=== PATIENT | male | born 1955 | race African-American/Black ===

== ENCOUNTER → 2017-01-29 | Day surgery (SDC) | payer BC ==
[~2017-01-29] VITALS: Ht 167.6 cm; Wt 104.8 kg
[~2017-01-29] MED LIST: ACETAMINOPHEN 500 MG CPLT PO PRN; ALBU6.7H INH; ATROPINE SULFATE 1% OPHT SOLN 2 ML BTL ONE; BALANCED SALT SOLN OPHT IRRIG 15 ML BTL ONE; CHLORHEXIDINE GLUCONATE 2 % 1 PACK (2 CLOTHS) TOPICAL PRN; DEXAMETHASONE SOD PHOS 4 MG/ML VIAL ONE; DO NOT ADM ANY ANTICOAGULANT DRUGS PRN; EPINEPHrine HCL (1:1000) 1 MG/ML VIAL ONE; GLIP10TA6 PO; INSULIN HUMAN REGULAR 1,000 UNITS/10 ML VIAL SQ PRN; LACTATED RINGER'S 1000 ML IV PRN; LISI-515 PO; METF500T PO; METOPROLOL TARTRATE 25 MG TAB PO PRN; ONDANSETRON HCL 4 MG/2 ML VIAL IM PRN; ONDANSETRON HCL 4 MG/2 ML VIAL IV PUSH ONE; PHENYLEPHRINE HCL 2.5% OPTH SOLN 2 ML BTL EACH EYE SCH; POVIDONE IODINE 5% (ANTISEPSIS KIT) 4 APPLICATIONS EACH NARE PRN; PROPOFOL 200 MG/20 ML AMP IV ONE; SIMV40TA PO; SODIUM CHLORID 0.9% 500 ML IV PRN; STERILE WATER FOR INJ 20 ML VIAL ONE; TOBRAMYCIN/DEXAMETHASONE OPTH OINT 3.5 GM TUBE ONE; TRIAMCINOLONE ACETONIDE/PF 40 MG/ML OPTH VIAL ONE; ceFAZolin INJ 1,000 MG VIAL ONE; ePHEDrine/NS 25 MG/5 ML SYR IV ONE; oxyCODONE/ACETAMINOPHEN 5 MG/325 MG TAB PO PRN
[2017-01-29] MEDS: ATROPINE SULFATE 1% OPHT SOLN 5 ML BTL EACH EYE SCH ×2 (06:30→07:25)
[2017-01-29 07:03] VITALS: BP 156/99; PULSE 70; RESP 18; TEMP 98.1; O2SAT 98
[2017-01-29] MEDS: CYCLOPENTOLATE HCL 1% OPHT SOLN 2 ML BTL EACH EYE SCH ×2 (07:10→07:25)
[2017-01-29] MEDS: TROPICAMIDE 1% OPHT SOLN 15 ML BTL EACH EYE SCH ×2 (07:10→07:25)
[2017-01-29 07:18] LABS: AUTOMATED NEUTROPHIL # 3.7 TH/MM3 (1.8-7.7); BASOPHIL % 0.7 % (0.0-2.0); EOSINOPHIL # 0.1 TH/MM3 (0-0.4); HEMATOCRIT 40.1 % (39.0-51.0); HEMO FLAGS DIFF FINAL; LYMPH % 30.6 % (9.0-44.0); MEAN CELL VOLUME 89.3 FL (80.0-100.0); MEAN CORPUSCULAR HEMOGLOBIN 29.3 PG (27.0-34.0); MEAN CORPUSCULAR HGB CONC 32.8 % (32.0-36.0); NEUT % 56.7 % (16.0-70.0); PLATELET COUNT 232 TH/MM3 (150-450); RED BLOOD COUNT 4.49 MIL/MM3 (4.50-5.90); RED CELL DISTRIBUTION WIDTH 13.4 % (11.6-17.2); WHITE BLOOD COUNT 6.5 TH/MM3 (4.0-11.0)
[2017-01-29 11:00] VITALS: BP 160/97; PULSE 88; RESP 18; TEMP 97.5; O2SAT 98
--- NOTE | 2017-01-29 14:17 | EKG ---
Date Performed: 01/29/2017 Time Performed: 06:46:21 PTAGE: 61 years EKG: Sinus rhythm VOLTAGE CRITERIA FOR LVH NONSPECIFIC T-WAVE ABNORMALITY NONSPECIFIC LATERAL ST ELEVATION, MOST CONSI STENT WITH EARLY REPOLARIZATION CHANGE ABNORMAL ECG Compared to PREVIOUS TRACING , there has been some flattening of the T waves in lead aVL but no other change. PREVIOUS TRACIN07/14/2000 06.52 DOCTOR: Tricia Palomares Interpretating Date/Time 01/29/2017 14:15:59
--- NOTE | 2017-01-30 10:48 | MP ---
cc: ADEN SINGH M.D. DATE OF SURGERY 01/29/2017 PREOPERATIVE DIAGNOSIS Severe proliferative diabetic retinopathy with preretinal and vitreous hemorrhage OU. POSTOPERATIVE DIAGNOSIS Severe proliferative diabetic retinopathy with preretinal and vitreous hemorrhage OU. PROCEDURE Trans pars plana vitrectomy with endolaser and indirect laser fill-in PRP, air-fluid exchange, left eye. SURGEON Dr. Aden Singh ANESTHESIA General laryngeal mask anesthesia INDICATIONS Mr. Rubio is a 61-year-old gentleman with a history of proliferative diabetic retinopathy OU. He had a vitreous hemorrhage in his right eye which was resolving with observation and then developed vitreous hemorrhage in his left eye. He has very severe anxiety and I suggested we do the vitrectomy and laser in the left eye in the operating room as usual, but also have his right eye dilated and performed laser indirect fill in PRP while he was still under general anesthesia. He wished to proceed. Informed consent was obtained. No guarantee was made as to visual outcome. PROCEDURE He was brought to [facility] operating room one and placed on the operating table. Appropriate anesthesia monitoring devices were applied and he was placed under general anesthesia using a laryngeal mask. The left eye was identified as the vitrectomy site and then prepped and draped in the usual sterile fashion. A lid speculum was placed. A time-out was called with the surgical team agreeing to the surgical site and planned procedure. The microscope was brought around and adjusted using the John 23-gauge vitrectomy system. The trocar cannulas were placed 3-1/2 mm posterior to the limbus after first displacing the conjunctiva. The first one was placed at approximately the 3 o'clock position and verified to be in the posterior chamber. An infusion cannula was affixed to it and turned on. Two additional trocar cannulas were placed at 10 and 2 o'clock. Using the flat contact lens for visualization, the eye was entered with the [employer]-rural health consultant light pipe and vitrectomy cutter and anterior core and partial peripheral vitrectomy was done using this lens. Also, the epicenters were approached and segmented with the vitrectomy cutter and also the horizontal scissors. The posterior hyaloid and fibrovascular proliferation was then removed with a small stub of dense non-tractional regressed neovascularization left along the inferior temporal arcade. A minimal amount of bleeding occurred and it was controlled with increasing the intraocular pressure. Next, using the biome, the rest of the peripheral vitreous was removed and then endolaser photocoagulation was performed in areas that were not reached easily with the endolaser photocoagulation were treated with the laser indirect ophthalmoscope and scleral depression. A total of 1187 laser spots were placed in all with the power that varied between 250 and 300 milliwatts in 0.1-second exposure. No retinal breaks were found. Using the soft tipped linear extrusion needle and biome wide angle viewing system, an air-fluid exchange was performed. Plugs were placed back in the cannulas and the cannulas were removed one by one with tamponade of the site with a cotton swab and diathermy to the overlying conjunctival wound. Once cannulas were removed, the eye was formed with good pressure and no visible air leaks. Atropine drops were placed on the cornea followed by subconjunctival actions of Ancef 125 mg in half cc and Decadron 2 mg in half cc. The lid speculum was removed and the patient was undraped. TobraDex ointment was placed on the cornea and then the left eye was patched and shielded. Next, attention was turned to the right eye and using the laser indirect delivery system, fill in PRP was placed in areas that had previously been untreated. A total of 869 laser spots were placed with a power of 300 milliwatts and 0.15-second exposure. The LMA was then removed as the patient was awakened and he was returned to recovery in good condition laying on his right side. When awake and alert, he will be asked to assume a face down position. MD DAMARI Melgar/OLIMPIA /9:55 AM /10:40 AM
== END | disposition home or self-care (01) ==
LOC: HSDC 06:08
PROVIDERS: ATTEND Ophthalmology
DX: E11.3593 Type 2 diabetes mellitus with proliferative diabetic retinopathy without macular edema, bilateral (principal); H43.13 Vitreous hemorrhage, bilateral; Z79.4 Long term (current) use of insulin
CPT/HCPCS: 00145; 66990; 67025; 67040; 85025; 93005; J0171; J0690; J1100; J2405; J3010; J7120; J3300

== ENCOUNTER 2018-03-18 06:39 | Inpatient (IN) ==
[2018-03-18] MEDS ORDERED: Tropicamide 1% Opth Drops 15 ML Bottle ONE (07:28)
[2018-03-18] MEDS ORDERED: Phenylephrine 2.5% Opth Drops 2 ML Bottle ONE (07:28)
[2018-03-18] MEDS ORDERED: Atropine 1% Opth Drops 5 ML Bottle ONE (07:29)
[2018-03-18] MEDS ORDERED: Cyclopentolate 1% Opth Drops 2 ML Bottle ONE (07:29)
[2018-03-18] MEDS ORDERED: Sodium Chlor 0.9% Inj 0 ML ONE (09:38)
[2018-03-30] MEDS ORDERED: Vancomycin Inj 1,000 MG in Sodium Chlor 0.9% Inj 250 ML IV.SIG SCH ×2 (08:00→09:00)
[2018-03-30] MEDS ORDERED: ceFAZolin 2 GM Premix Inj 2 GM/50 ML PIGGYBACK IV.SIG SCH (08:00)
[2018-03-30] MEDS ORDERED: Metoprolol Tartrate 25 MG Tablet PO SCH (08:00)
[2018-03-30] MEDS ORDERED: Chlorhexidine 4% Topical 120 APPLIC/120 ML Bottle TOPICAL SCH ×2 (08:00→08:45)
[2018-03-30] MEDS ORDERED: Sodium Chlor 0.9% Inj 500 ML IV.SIG SCH (08:00)
[2018-03-30] MEDS ORDERED: Chlorhexidine Gluconate 2% 1 Pack (2 Cloths) TOPICAL SCH (08:00)
[2018-03-30] MEDS ORDERED: Sodium Chlor 0.9% Inj 250 ML ONE (08:25)
[2018-03-30] MEDS ORDERED: Bupivacaine/Epinephrine PF Inj 0.25% 10 ML Vial ONE (08:46)
[2018-03-30] MEDS ORDERED: Betamethasone Sod Phos/Acetate Inj 30 MG/5 ML Vial IM ONE (08:46)
[2018-03-30] MEDS ORDERED: Gelatin Size 100 Topical Foam ONE (08:47)
[2018-03-30] MEDS ORDERED: Succinylcholine Inj 100 MG/5 ML Syringe IV.PUSH ONE (12:00)
[2018-03-30] MEDS ORDERED: Lidocaine PF 1% Inj 5 ML Syringe INFILTRATN ONE (12:00)
[2018-03-30] MEDS ORDERED: Phenylephrine/NS 1000 MCG/10ML Syringe IV.PUSH ONE (12:00)
[2018-03-30] MEDS ORDERED: Morphine Inj 4 MG/ML Vial IV.PUSH PRN (14:18)
[2018-03-30] MEDS ORDERED: Bisacodyl 10 MG Supp RECTAL PRN (14:18)
[2018-03-30] MEDS ORDERED: Post-op Orders (for Pharmacy) OTHER STA (14:18)
--- NOTE | 2018-03-30 14:26 | P.OP ---
Preoperative Diagnosis: Spondylolisthesis L4-5, grade 1+. Foraminal disc herniation left L4-5, extruded. Lumbar spinal stenosis. Left L4 radiculopathy Postoperative Diagnosis: Same Date of procedure: 03/30/18 Procedure: Lumbar laminectomy to the left L4, L5 with left subtotal facet resection L4-5 and resection extruded foraminal disc herniation. Posterior spinal fusion, lateral transverse process technique, L4-5. Post lateral interbody fusion, L4-5. Placement of interbody cage, L4-5, from the left. Posterior spinal segmental instrumentation. Bone grafting of the lumbar spine Anesthesia: GETA Surgeon: Drake Mckenzie MD Software Project Lead: Salma Voss PA-C Operation and Findings: EBL: 200 ml NOTE: Salma Voss PA-C was present for the entire surgical procedure as my airline pilot/first officer. In my medical opinion her skill and care was necessary for proper management of this patient INDICATIONS: This patient is a 62-year-old male with severe left leg pain with weakness. Investigative studies showed evidence of a large extruded foraminal disc herniation at L4-5 to the left with evidence of a very unstable L4-5 spondylolisthesis with kyphotic features and forward tilting across this level and collapse of the disc space. He presents for surgical treatment. INSTRUMENTATION: Spinenet screws. Spine wave staxx cage PROCEDURE: The patient brought to the operating room and anesthetized the supine position. The patient positioned prone on the Markel frame on the Dylan table. All pressure points are protected. The back was scrubbed with alcohol followed by Hibiclens followed by ChloraPrep and draped sterilely and antibiotics were given within a routine time window. A timeout was done. Lateral radiographic images used to identify the proper level for the procedure. Compared care for the preoperative studies. Skin markings were made anticipating surgical treatment. A left paramedian incision was made. The lamina and facet joint was exposed. We used a dilating retractor which was positioned over this region. The microscope was rolled into the field for visualization. A high-speed bur was used to take the lamina down and doing a subtotal facet resection. The exiting and crossing nerve roots were completely decompressed. There was a very large extruded disc herniation to the left of midline extending out the foramen with severe compression upon the exiting L4 nerve root. This was resected. A total discectomy was accomplished. The disc space was prepared. All cartilaginous material from the disc space was removed. A combination of demineralized bone matrix and Nucel stem cells were mixed together on the back table.. These were injected into the disc space. The cage was then placed according to pilot can router's recommendation and deployed. Position was satisfactory. Additional bone graft was placed into the disc space. The outer edge of the facet joint was identified and prepared. Under fluoroscopic images, a bur was used to gain entrance into the pedicle followed by placement of a blunt probe, an awl and placement of proper length screws. Each screw was charged with electric current there are no abnormal potentials registered in either lower extremity. A proper length alyson was fitted and attached and tightened according to pilot can router's recommendation. The wound was irrigated copiously. Bone grafting was placed along the lateral gutter in the region of the transverse process across this level. This was closed in layers with #1 Vicryl, 2-0 Vicryl and running intradermal 3-0 Vicryl followed by Steri-Strips and benzoin. On the contralateral side a separate exposure was made. The outer edge of the facet joints were identified. A bur was used to gain entrance into the pedicle followed by placement of a probe and proper length screws. Each screw was charged with electric current and no abnormal potentials registered in either lower extremity. The wound was irrigated copiously. Bone graft placed along the transverse process across this level. It was closed in layers using #1 Vicryl, 2-0 Vicryl and running intradermal 3-0 Vicryl followed by Steri-Strips and benzoin. Intraoperative radiographs were obtained. No complication was appreciated. The patient had a sterile dressing applied. The patient was awakened and taken to recovery room in satisfactory condition. FINDINGS: There was a high-grade stenosis in the foramen to the left at L4-5. The decompression was very satisfactory. We reduced the spondylolisthesis. The final alignment was near anatomic
--- NOTE | 2018-03-30 14:35 | P.DCO ---
- Physical Therapy Physical Therapy: Gait training S/P Spinal Fusion: Gait training with walker - Nursing RN days per week: 7 Nursing: Dressing changes Dressing changes: Daily dressing change - Certification Need for Home Health services: I have seen patient Riki Rubio on 03/30/18. My clinical findings support the need for the requested home health care services because: Need for Home Health Services: High risk of falls Homebound Certification: I certify that my clinical findings support that this patient is homebound because: Homebound Certification: Unsteady gait/balance
[2018-03-30] MEDS ORDERED: *Meperidine Inj 25 MG/ML Vial PERIprocedural Use ONLY ONE (15:09)
[2018-03-30] MEDS ORDERED: *morphine SULFATE 4 MG/ML PERIprocedure ONLY ONE ×2 (15:19→16:22)
[2018-03-30] MEDS ORDERED: fentaNYL Citrate Inj 100 MCG/2 ML Ampul ONE (15:22)
[2018-03-30] MEDS ORDERED: HYDROmorphone PF Inj 2 MG/ML Vial ONE (15:26)
--- NOTE | 2018-03-30 16:40 | XR ---
EXAM DATE: 03/30/2018 4:08 PM EDT AGE/SEX: 62 years / Male INDICATIONS: Fusion L4,L5 with screws and rods placement. CLINICAL DATA: This is the patient's initial encounter. Patient reports that signs and symptoms have been present for 1 day and indicates a pain score of Nonresponsive. MEDICAL/SURGICAL HISTORY: None. None. COMPARISON: No prior exams available for comparison. FINDINGS: Transpedicular screws traverse the bodies ofL4 and L5 with posterior stabilization hardware in place in addition to anterior fusion at these levels. CONCLUSION: Intact immediate postsurgical changes. Electronically signed by: Randa Toure MD 03/30/2018 4:38 PM EDT
[2018-03-30] MEDS ORDERED: Temazepam 15 MG Capsule PO PRN (21:00)
[2018-03-30] MEDS: Gabapentin 300 MG Capsule PO SCH (22:34)
[2018-03-30] MEDS: Senna/Docusate Sodium 8.6/50 MG Tablet PO SCH (22:35)
[2018-03-30] MEDS: Multivitamin/Minerals Therapeutic Tablet PO SCH (22:35)
[2018-03-30] MEDS: glipiZIDE 5 MG Tablet PO SCH (22:35)
[2018-03-31] MEDS: Gabapentin 300 MG Capsule PO SCH (08:46)
[2018-03-31] MEDS: Multivitamin/Minerals Therapeutic Tablet PO SCH (08:49)
[2018-03-31] MEDS: glipiZIDE 5 MG Tablet PO SCH (08:49)
[2018-03-31] MEDS ORDERED: Lisinopril 20 MG Tablet PO SCH (09:00)
[2018-03-31] MEDS ORDERED: amLODIPine 5 MG Tablet PO SCH (09:00)
[2018-03-31] MEDS: Senna/Docusate Sodium 8.6/50 MG Tablet PO SCH (11:21)
--- NOTE | 2018-03-31 12:56 | P.PNOP ---
Subjective Interval history: He did well last night. He states he felt good this morning but his pain increased after sitting in the chair for too long. He states his leg 'feels stronger already'. He prefers discharge home today. Physical Exam Vital signs: Vital Signs 03/30/18 14:55 03/30/18 15:10 03/30/18 15:25 Temperature 97.4 F L Pulse Rate 82 80 79 Respiratory Rate Blood Pressure 115/65 117/69 117/69 Pulse Oximetry 100 100 100 03/30/18 16:00 03/30/18 17:00 03/30/18 18:00 Temperature 98 F Pulse Rate 80 82 85 Respiratory Rate 20 Blood Pressure 111/55 L 126/60 115/62 Pulse Oximetry 100 100 96 03/30/18 20:00 03/31/18 00:00 03/31/18 04:00 Temperature 98.5 F 97.8 F 98 F Pulse Rate 88 83 84 Respiratory Rate 17 17 17 Blood Pressure 131/68 147/78 H 136/67 Pulse Oximetry 97 98 100 03/31/18 08:00 03/31/18 09:00 03/31/18 12:00 Temperature 98.4 F 98.3 F Pulse Rate 73 76 82 Respiratory Rate 18 19 Blood Pressure 160/75 H 153/45 H 163/78 H Pulse Oximetry 99 100 100 Intake & Output 03/30/18 03/31/18 03/31/18 18:59 06:59 18:59 Intake Total 1670 / 1670 1680 / 1680 Output Total 600 / 600 Balance 1070 / 1070 1680 / 1680 Weight 100 kg Intake: IV 370 / 370 1200 / 1200 LR 1000 mL Inj 1,000 ML @ 80 1000 / 1000 mls/hr IV.CONT .[id number] ASHLEY Rx# :[id number] Vancomycin Inj 1,000 MG In NS 250 / 250 Inj 250 ML @ 250 mls/hr IV.SIG ORNAMENT SETTER ASHLEY Rx#:[id number] Ancef Inj 1,000 MG In NS Inj 200 / 200 100 ML @ 200 mls/hr IV.SIG Q6H ASHLEY Rx#:[id number] Ancef Inj 2,000 MG In NS Inj 120 / 120 100 ML @ 240 mls/hr IV.SIG ORNAMENT SETTER ASHLEY Rx#:[id number] Oral 480 / 480 Anesthesia Amount 1200 / 1200 Other 100 / 100 Output: Urine 400 / 400 Estimated Blood Loss 200 / 200 Other: Date of Last Bowel Movement 03/29/18 Weight On Admission 100 kg Narrative: Laying in bed NAD With his L/S Dressings intact, mild SS drainage, mild spasms, no erythema +motor at, +sens, +nvi Neg homans bilat, some swelling both feet - Constitutional no acute distress Results - Labs Laboratory Results - last 24 hr 03/30/18 15:22 POC Glucose 147 H - Imaging Impressions Lumbar Spine X-Ray 03/30/18 00:00 CONCLUSION: Intact immediate postsurgical changes. - Procedures Lumbar laminectomy and posterior lumbar fusion L45 Assessment and Plan - Ortho Post Op Day # 1 - Problem List (1) Spondylolisthesis at L4-L5 level Code(s): M43.16 - Spondylolisthesis, lumbar region Status: Acute - Assessment and Plan pod#1 s/p Lami/Fusion L45 Doing well. Had some increased pain this morning after sitting in chair. Ok to d/c home w [facility] this afternoon if pain improving. PT - Out of bed with brace for 10 weeks. Hold dressing changes unless saturated. Ok to shower pod#5 if kept sealed. PO pain meds as needed. Ice to lumbar spine daily. F/U in 2 weeks as scheduled.
--- NOTE | 2018-03-31 12:57 | P.DS ---
Date of admission: 03/30/18 06:50 Primary care physician: Be Reyes MD Attending physician on discharge: Drake Mckenzie Anticipated date of discharge: 03/31/18 DS: Diagnosis - Discharge Diagnosis (1) Spondylolisthesis at L4-L5 level Status: Acute DS: Medications - Discharge Medications Prescriptions: hydrocodone-acetaminophen 1 tab PO Q4H PRN #42 tab PRN Reason: Acute Pain DS: Summary Hospital Course: Surgical treatment was performed on the day of admission without complication. The patient recovered well in PACU and was transferred to the orthopedic floor. IV and oral medications were supplied. The patient was compliant with physical therapy and all precautions. After ___ days she was found to be stable and discharged home with home health care. He was encouraged to continue physical therapy, to elevate the operative limb and ice it 2-3 times daily, and to pursue a high fiber diet. He was given prescriptions of Gillett 7.5mg and ASA 81mg twice daily. [facility] pod #1. Gillett at discharge. - Time Spent with Patient Total time spent providing and/or coordinating discharge services: - Quality: VTE Deep Vein Thrombosis/Pulmonary Embolism Present on Admission: No Exam Vital signs: Vital Signs 03/30/18 14:55 03/30/18 15:10 03/30/18 15:25 Temperature 97.4 F L Pulse Rate 82 80 79 Respiratory Rate Blood Pressure 115/65 117/69 117/69 Pulse Oximetry 100 100 100 03/30/18 16:00 03/30/18 17:00 03/30/18 18:00 Temperature 98 F Pulse Rate 80 82 85 Respiratory Rate 20 Blood Pressure 111/55 L 126/60 115/62 Pulse Oximetry 100 100 96 03/30/18 20:00 03/31/18 00:00 03/31/18 04:00 Temperature 98.5 F 97.8 F 98 F Pulse Rate 88 83 84 Respiratory Rate 17 17 17 Blood Pressure 131/68 147/78 H 136/67 Pulse Oximetry 97 98 100 03/31/18 08:00 03/31/18 09:00 03/31/18 12:00 Temperature 98.4 F 98.3 F Pulse Rate 73 76 82 Respiratory Rate 18 19 Blood Pressure 160/75 H 153/45 H 163/78 H Pulse Oximetry 99 100 100 Intake & Output 03/30/18 03/31/18 03/31/18 18:59 06:59 18:59 Intake Total 1670 / 1670 1680 / 1680 Output Total 600 / 600 Balance 1070 / 1070 1680 / 1680 Weight 100 kg Intake: IV 370 / 370 1200 / 1200 LR 1000 mL Inj 1,000 ML @ 80 1000 / 1000 mls/hr IV.CONT .[id number] ASHLEY Rx# :[id number] Vancomycin Inj 1,000 MG In NS 250 / 250 Inj 250 ML @ 250 mls/hr IV.SIG ULTRASONIC SOLDERER ASHELY Rx#:[id number] Ancef Inj 1,000 MG In NS Inj 200 / 200 100 ML @ 200 mls/hr IV.SIG Q6H ASHLEY Rx#:[id number] Ancef Inj 2,000 MG In NS Inj 120 / 120 100 ML @ 240 mls/hr IV.SIG ULTRASONIC SOLDERER ASHLEY Rx#:[id number] Oral 480 / 480 Anesthesia Amount 1200 / 1200 Other 100 / 100 Output: Urine 400 / 400 Estimated Blood Loss 200 / 200 Other: Date of Last Bowel Movement 03/29/18 Weight On Admission 100 kg Results Procedures completed during hospitalization: Lumbar laminectomy and posterior lumbar fusion L45 Labs on day of discharge: Labs from last 24 hours 03/30/18 15:22 POC Glucose 147 H - Impressions ITS Impressions Lumbar Spine X-Ray 03/30/18 00:00 CONCLUSION: Intact immediate postsurgical changes. Discharge Plan - Discharge Disposition Patient Disposition: /Home Health Service - Discharge Condition Condition: Good - Discharge Order Discharge Orders: Discharge Order (Routine); Ordered 03/31/18 Ordered By: Drake Mckenzie - Physicians Team Primary Care Provider: Be Reyes Attending Provider: Drake Mckenzie Other Providers: [facility]ency - Rxs /Orders / Referrals /Forms Prescriptions: New hydrocodone-acetaminophen 7.5-325 mg Tablet 1 tab PO Q4H PRN (Reason: Acute Pain) Qty: 42 RF: 0 Continue amlodipine 5 mg Tablet 5 mg PO DAILY gabapentin 300 mg Capsule 300 mg PO BID glipizide 5 mg Tablet 5 mg PO BID lisinopril 40 mg Tablet 40 mg PO DAILY metformin 1,000 mg Tablet 1,000 mg PO BID No Action meloxicam 7.5 mg Tablet oxybutynin chloride 5 mg Tablet Extended Release 24hr 5 mg PO DAILY tamsulosin 0.4 mg Capsule,Extended Release 24hr 0.4 mg PO DAILY Ambulatory Orders / Order Sets / DME: Walker With Front Wheels (1 each) (Routine) Location: Determined by Patient Ordered By: Drake Mckenzie Referrals: Be Reyes MD [Primary Care Provider] - See Instructions - Discharge Instructions Patient Printed Instructions: Hydrocodone/Acetaminophen (By mouth), Laminectomy (DC), Fall Prevention (DC) - Post Discharge Care Plan Care Plan Goals: Your Health Problems: Lumbar spinal stenosis s/p Lumbar Laminectomy and Fusion L45 03/30/18 Goals to Promote Your Health: * To prevent worsening of your condition * To maintain your health at the optimal level Directions to Meet Your Goals: * Take your medications as prescribed * Follow your dietary instruction. A high fiber diet is encouraged 3-5 days after surgery to assist with bowel function. * Follow activity as directed. You should wear your brace when out of bed for the next 10 weeks. You can removed this to shower and bathe. * Keep your appointments as scheduled * Take your immunizations and boosters as scheduled * If your symptoms worsen call your PCP * If no PCP go to Urgent Care or Emergency Room Smoking is dangerous to your health. Avoid second hand smoke. You may reach the 24-hour crisis hotline for domestic abuse at .
== END 2018-03-31 18:36 | disposition home health service (06) ==
LOC: HSDI 06:39 → N06 03-30 17:37
PROVIDERS: ADMIT Orthopaedic Surgery Orthopaedic Surgery of the Spine; ATTEND Orthopaedic Surgery Orthopaedic Surgery of the Spine